=== PATIENT | male | born 1970 ===

== ENCOUNTER 2017-11-08 06:20 | Emergency (ER) | payer SELFPAY | END 2017-11-08 06:30 | disposition left against medical advice (07) | LOC: ED 06:20 | DX: Z53.21 Procedure and treatment not carried out due to patient leaving prior to being seen by health care provider (principal) ==

== ENCOUNTER 2017-11-09 15:44 | Emergency (ER) | payer SELFPAY ==
[2017-11-09 16:30] VITALS: BP 122/93
[2017-11-09 17:00] LABS: Basophils # (Auto) 0.1 K/mm3 (0.0-0.1); Basophils % (Auto) 0.6 % (0.0-1.8); Hematocrit 43.9 % (35.5-45.6); Lymphocytes # (Auto) 0.8 K/mm3 (1.2-5.4); Lymphocytes % (Auto) 6.7 % (13.4-35.0); Mean Corpuscular HGB Conc 34 % (32-34); Mean Corpuscular Hemoglobin 33 pg (28-32); Mean Corpuscular Volume 97 fl (84-94); Monocytes # (Auto) 1.1 K/mm3 (0.0-0.8); Monocytes % (Auto) 9.3 % (0.0-7.3); Platelet Count 253 K/mm3 (140-440); Red Blood Count 4.53 M/mm3 (3.65-5.03); Red Cell Distribution Width 14.4 % (13.2-15.2)
[2017-11-09 17:21] LABS: Bacteria,Urine 1+ /HPF (Negative); Bilirubin,Urine NEG (Negative); Blood,Urine LG (Negative); Color,Urine Amber (Yellow); Hyaline Casts,Urine 13 /LPF; Mucus,Urine 3+ /HPF; Sperm,Urine FEW /HPF (NP)
[2017-11-09 17:22] LABS: Amphetamine Screen,Urine PRESUMPTIVE NEGATIVE; Benzodiazepines Screen,Urine PRESUMPTIVE NEGATIVE; Cocaine Screen,Urine PRESUMPTIVE NEGATIVE; Methadone Screen,Urine PRESUMPTIVE NEGATIVE; Opiate Screen,Urine PRESUMPTIVE NEGATIVE
[2017-11-09 17:31] LABS: Calcium 10.3 mg/dL (8.4-10.2)
[2017-11-09 17:40] LABS: Cannabinoid Screen,Urine PRESUMPTIVE POSITIVE
[2017-11-09] MEDS ORDERED: K-DUR PO ONE (18:28)
--- NOTE | 2017-11-09 18:43 | Emergency Department Report ---
HPI - General Chief Complaint: Medical Clearance Time Seen by Provider: 11/09/17 18:27 - HPI HPI: This chart was originally started prior to the patient running out of an opening from the emergency department. This child will no longer be used for this patient's visit and ED course. A new chart has been started. ED Past Medical Hx - Past Medical History Previous Medical History?: Yes Hx Headaches / Migraines: Yes (unknown reason) - Surgical History Past Surgical History?: No - Social History Smoking Status: Current Every Day Smoker Substance Use Type: Marijuana ED Review of Systems ROS: Stated complaint: ams Other details as noted in HPI Comment: All other systems reviewed and negative Constitutional: denies: chills, fever Eyes: denies: eye pain, eye discharge, vision change ENT: denies: ear pain, throat pain Respiratory: denies: cough, shortness of breath, wheezing Cardiovascular: denies: chest pain, palpitations Gastrointestinal: denies: abdominal pain, nausea, diarrhea Genitourinary: denies: urgency, dysuria Musculoskeletal: joint swelling, arthralgia. denies: back pain Skin: denies: rash, lesions Neurological: denies: headache, numbness Psychiatric: visual hallucinations. denies: homicidal thoughts, suicidal thoughts Physical Exam - Physical Exam Vital Signs: Vital Signs 11/09/17 11/09/17 16:07 16:39 Temperature 97.9 F Pulse Rate 125 H Respiratory 18 18 Rate Blood Pressure 122/93 O2 Sat by Pulse 98 Oximetry Physical Exam: This chart was originally started prior to the patient running out of an opening from the emergency department. This child will no longer be used for this patient's visit and ED course. A new chart has been started. ED Course Vital Signs 11/09/17 11/09/17 16:07 16:39 Temperature 97.9 F Pulse Rate 125 H Respiratory 18 18 Rate Blood Pressure 122/93 O2 Sat by Pulse 98 Oximetry ED Medical Decision Making - Lab Data Result diagrams: 11/09/17 16:48 11/09/17 16:48 - Medical Decision Making After I did my initial assessment, the patient was waiting for assessment by the psychiatric assessment team. He was supposed to get some potassium chloride , and antibiotic for his urinary tract infection and an x-ray of his left ankle. I did not fill out a 1013 initially on the patient as he denies any suicidal or homicidal ideations and is oriented to person, place and time. However prior to the psych assessment, the patient got up and ran down the hallway and directly out of the emergency department and eloped. Critical care attestation.: If time is entered above; I have spent that time in minutes in the direct care of this critically ill patient, excluding procedure time. ED Disposition Clinical Impression: Psychosis Disposition: ELOPED Is pt being admited?: No Condition: Stable Referrals: PRIMARY CARE, [Primary Care Provider] - 3-5 Days
--- NOTE | 2017-11-10 15:51 | Consultation ---
History of Present Illness - Reason for Consult Consult date: 11/10/17 Reason for consult: Mental Health Evaluation Requesting physician: MOODY BETHEA - Chief Complaint Chief complaint: "I smoke all the time and hear voices" - History of Present Psychiatric Illness 47 y.o. AA male presenting to the ER for acute psychosis. Per the record the patient was naked when taken into custody Medications and Allergies Allergies Allergy/AdvReac Type Severity Reaction Status Date / Time No Known Allergies Allergy Unverified 11/09/17 16:32 Home Medications Medication Instructions Recorded Confirmed Last Taken Type Nitrofurantoin [place]/M-Cryst 100 mg PO BID #14 capsule 11/09/17 Unknown Rx [Macrobid CAP] Mental Status Exam - Vital signs Last Vital Signs Temp 97.9 F 11/09/17 16:07 Pulse 125 H 11/09/17 16:07 Resp 18 11/09/17 16:39 BP 122/93 11/09/17 16:07 Pulse Ox 98 11/09/17 16:07 - Exam Narrative exam: MSE: Appearance: cooperative Behavior: regular eye contact Speech: regular rate and tone Mood: "well" Affect: congruent to mood Thought Process: circumstantial Thought Content: denies SI/HI's and VH's, paranoid Motor Activity: ambulatory Cognition: A/O x 3 Insight: poor Judgment: poor Results Result Diagrams: 11/09/17 16:48 11/09/17 16:48 Abnormal lab results 11/09/17 11/09/17 11/09/17 Range/Units 16:16 16:48 16:48 WBC (4.5-11.0) K/mm3 MCV (84-94) fl MCH (28-32) pg Lymph % (Auto) (13.4-35.0) % [place] % (Auto) (0.0-7.3) % Lymph # (1.2-5.4) K/mm3 [place] # (0.0-0.8) K/mm3 Seg Neutrophils % (40.0-70.0) % Seg Neutrophils # (1.8-7.7) K/mm3 Potassium (3.6-5.0) mmol/L Chloride (98-107) mmol/L Glucose (75-100) mg/dL Calcium (8.4-10.2) mg/dL Urine WBC (Auto) 99.0 H (0.0-6.0) /HPF Salicylates < 0.3 L (2.8-20.0) mg/dL Acetaminophen < 5.0 L (10.0-30.0) ug/mL 11/09/17 11/09/17 Range/Units 16:48 16:48 WBC 12.3 H (4.5-11.0) K/mm3 MCV 97 H (84-94) fl MCH 33 H (28-32) pg Lymph % (Auto) 6.7 L (13.4-35.0) % [place] % (Auto) 9.3 H (0.0-7.3) % Lymph # 0.8 L (1.2-5.4) K/mm3 [place] # 1.1 H (0.0-0.8) K/mm3 Seg Neutrophils % 83.4 H (40.0-70.0) % Seg Neutrophils # 10.2 H (1.8-7.7) K/mm3 Potassium 3.2 L (3.6-5.0) mmol/L Chloride 95.2 L (98-107) mmol/L Glucose 109 H (75-100) mg/dL Calcium 10.3 H (8.4-10.2) mg/dL Urine WBC (Auto) (0.0-6.0) /HPF Salicylates (2.8-20.0) mg/dL Acetaminophen (10.0-30.0) ug/mL All other labs normal. Assessment and Plan Assessment and plan: Impression: Unspecified Psychosis. Cannabis Use DO. Recommendation/Plan:
== END 2017-11-09 18:35 | disposition left against medical advice (07) ==
LOC: ED 15:44
DX: F23 Brief psychotic disorder (principal); F17.200 Nicotine dependence, unspecified, uncomplicated; F12.10 Cannabis abuse, uncomplicated; G43.909 Migraine, unspecified, not intractable, without status migrainosus
CPT/HCPCS: 36415; 80048; 80307; 81001; 85025; 99284; G0480; 80320

== ENCOUNTER 2017-11-09 19:55 | Emergency (ER) | payer SELFPAY ==
--- NOTE | 2017-11-09 20:26 | Emergency Department Report ---
HPI - General Time Seen by Provider: 11/09/17 20:04 - HPI HPI: 47-year-old -[place]ong[place] male presents to the emergency department via PD after he was found naked and possibly intoxicated. The patient admits to smoking marijuana with another "younger mic" and he thinks that it may have been laced with something. He complains of hallucinations. He said that earlier he thought someone may have been coming at him with a knife. Patient is AAO 3, to person, place and time. Patient says that he may have some history of diabetes but this was not confirmed. The patient previously eloped from the emergency department prior to being made a 1013 and ran straight through the sliding doors and outside. Recently, the patient was brought back again by the [facility] Department after he was once again found naked in public. The patient has now been made a 1013. Patient's family came to the hospital and I was in to speak with his mother. She says that it is his birthday weekend and he went out and celebrate with some friends on Thursday and came back saying that he thinks that his marijuana was laced. She says that he was acting paranoid, hallucinating and at one point even asked to go to the hospital. The patient's sister drove him to the hospital where he once again got up and ran out and came back home. ED Past Medical Hx - Past Medical History Previous Medical History?: Yes Hx Headaches / Migraines: Yes (unknown reason) - Social History Smoking Status: Unknown if ever smoked - Medications Home Medications: Home Medications Medication Instructions Recorded Confirmed Last Taken Type Nitrofurantoin [place]/M-Cryst 100 mg PO BID #14 capsule 11/09/17 Unknown Rx [Macrobid CAP] ED Review of Systems ROS: Stated complaint: MH EVALUATION Other details as noted in HPI Comment: All other systems reviewed and negative Constitutional: denies: chills, fever Eyes: denies: eye pain, eye discharge, vision change ENT: denies: ear pain, throat pain Respiratory: denies: cough, shortness of breath, wheezing Cardiovascular: denies: chest pain, palpitations Gastrointestinal: denies: abdominal pain, nausea, diarrhea Genitourinary: denies: urgency, dysuria Musculoskeletal: denies: back pain, myalgia Skin: denies: rash, change in color Neurological: denies: headache, numbness Psychiatric: visual hallucinations, other (paranoia). denies: suicidal thoughts Physical Exam - Physical Exam Physical Exam: GENERAL: The patient is well-developed well-nourished. HENT: Normocephalic. Atraumatic. Patient has moist mucous membranes. EYES: Extraocular motions are intact. NECK: Supple. Trachea is midline. CHEST/LUNGS: Clear to auscultation. There is no respiratory distress noted. HEART/CARDIOVASCULAR: Regular. There is no tachycardia. There is no murmur. ABDOMEN: Abdomen is soft, nontender. Patient has normal bowel sounds. There is no abdominal distention. SKIN: Skin is warm and dry. NEURO: The patient is awake, alert, and oriented. The patient is cooperative. The patient has no focal neurologic deficits. The patient has normal speech. MUSCULOSKELETAL: There is no tenderness or deformity. There is no limitation range of motion. There is no evidence of acute injury. PSYCH: The patient appears disorganized. He has some rambling speech but sometimes can be redirected. ED Medical Decision Making - Medical Decision Making The patient was brought in earlier by the police after he was found naked and seemed either intoxicated or having some type of psychosis. As previously mentioned, the patient took off running from the emergency department and eloped. However he was once again found naked wandering the streets and was brought in by the police department yet again. Originally the concern was that the patient may have smoked marijuana was laced with something or some other type of drug. The urine drug screen is positive only for marijuana. However there are other drugs and/or pharmaceuticals that are manufactured and we are unable to test or check for them. That being said, this may not be a drug intoxication or reaction and may just be psychosis. One point this evening, the patient attempted to harm himself using the sheets that were in the room. For his own safety, the patient had the sheets removed from the room. The patient was stating that he had nothing to live for. However mom had previously said that prior to this weekend he was acting normal , able to hold down a job. Patient's labs show a urinary tract infection. He has been started on Macrobid. He has some mild hypokalemia for which she was given some potassium chloride. The patient was given a dose of Geodon to help with the active psychosis. He has been made a 1013 secondary to the psychosis which includes some delusions and paranoia. His vital signs and stable throughout his ED course. He is medically cleared for psychiatric placement. - Differential Diagnosis drug intoxication/reaction, psychosis, schizophrenia Critical Care Time: No Critical care attestation.: If time is entered above; I have spent that time in minutes in the direct care of this critically ill patient, excluding procedure time. ED Disposition Clinical Impression: Psychosis Qualifiers: Psychosis type: unspecified psychosis type Qualified Code(s): F29 - Unspecified psychosis not due to a substance or known physiological condition UTI (urinary tract infection) Qualifiers: Urinary tract infection type: acute cystitis Hematuria presence: without hematuria Qualified Code(s): N30.00 - Acute cystitis without hematuria Disposition: DC/TX-65 PSY HOSP/PSY UNIT Is pt being admited?: No Condition: Stable Instructions: Urinary Tract Infection in Men (ED) Additional Instructions: I am giving him a referral for a local urologist, Dr. Hamilton, to follow up with after you were done with either your emergency or psychiatric visit. Prescriptions: Nitrofurantoin [place]/M-Cryst [Macrobid CAP] 100 mg PO BID #14 capsule Referrals: PRIMARY MD TOM [Primary Care Provider] - 3-5 Days ASHLEE HAMILTON MD [Staff Physician] - 3-5 Days Time of Disposition: 23:56
[2017-11-09] MEDS ORDERED: GEODON IM ONE (21:50)
[2017-11-09] MEDS ORDERED: K-DUR PO ONE (22:35)
[2017-11-09] MEDS ORDERED: WATER FOR INJ (PF) ONE (23:21)
[2017-11-09] MEDS: MACROBID PO SCH (23:27)
[2017-11-10] MEDS: MACROBID PO SCH ×2 (10:00→22:25)
[2017-11-10] MEDS ORDERED: LEVAQUIN PO ONE (12:35)
--- NOTE | 2017-11-10 15:58 | Consultation ---
History of Present Illness - Reason for Consult Consult date: 11/10/17 Reason for consult: Mental Health Evaluation Requesting physician: MOODY BETHEA - Chief Complaint Chief complaint: "I smoke everyday" - History of Present Psychiatric Illness 47-year-old -[place] male presents to the emergency department via PD after he was found naked and possibly intoxicated. Today the patient is cooperative, but anxious during the assessment. He stated that he smoke marijuana everyday. He could not elaborate about what happened yesterday when asked. He did state that he was naked when brought to the ER. He was looking around and pausing when asked questions, possibly responding to some type of stimuli. He stated that he felt like something isn't right with him. He denies a mental hx dx. He denies SI/HI's and AVH's. He denies erratic sleep and a poor appetite. He denies alcohol consumption (etoh). Medications and Allergies Allergies Allergy/AdvReac Type Severity Reaction Status Date / Time No Known Allergies Allergy Unverified 11/09/17 16:32 Home Medications Medication Instructions Recorded Confirmed Last Taken Type Nitrofurantoin [place]/M-Cryst 100 mg PO BID #14 capsule 11/09/17 Unknown Rx [Macrobid CAP] Active Meds: Active Medications Nitrofurantoin Macrocrystals (Macrobid) 100 mg PO BID JAYDON Last Admin: 11/09/17 23:27 Dose: 100 mg Mental Status Exam - Vital signs Last Vital Signs Temp 99.0 F 11/10/17 03:00 Pulse 110 H 11/10/17 03:00 Resp 20 11/10/17 03:00 BP 126/78 11/10/17 03:00 Pulse Ox 98 11/10/17 03:00 - Exam Narrative exam: MSE: Appearance: cooperative Behavior: regular eye contact Speech: regular rate and tone Mood: anxious Affect: congruent to mood Thought Process: tangential Thought Content: denies SI/HI's and AVH's, paranoid Motor Activity: ambulatory Cognition: A/O x 3 Insight: variable Judgment: variable Results All other labs normal. Assessment and Plan Assessment and plan: Impression: Unspecified Psychosis. R/O Unspecified Anxiety DO. Cannabis Use DO. Today the patient is cooperative, but anxious during the assessment. DDx: Substance Induced Psychosis Recommendation/Plan: Reevaluate the 1013 in 24 hours to determine proper dispo. Start Vistaril 25 mg PO BID for anxiety.
[2017-11-10] MEDS: VISTARIL PO SCH (22:25)
[2017-11-11] MEDS: MACROBID PO SCH ×2 (10:00→21:29)
[2017-11-11] MEDS: VISTARIL PO SCH ×2 (10:00→21:29)
--- NOTE | 2017-11-11 13:15 | Progress Note ---
Subjective - Reason for Consult Consult date: 11/11/17 Reason for consult: Psychiatric Follow-up Evaluation - Chief Complaint Chief complaint: "I feel okay" Patient is a 47-year-old -Vietnamese male that presents to the emergency department via PD after he was found naked and possibly intoxicated. Today the patient is cooperative, but anxious during the assessment. He stated that he smoke marijuana everyday. Patient presents somewhat guarded and evasive throughout the assessment. Unable to answer questions appropriately. He states, " I'm here because I was on some shit. I needed some sleep." He reports decrease sleep and appetite. He endorses paranoid delusions and auditory hallucinations telling him to leave. He denies SI/HI's. Mental Status Exam - Vital signs Last Vital Signs Temp 98.9 F 11/11/17 10:00 Pulse 115 H 11/11/17 10:00 Resp 16 11/11/17 10:00 BP 130/105 11/11/17 10:00 Pulse Ox 99 11/11/17 10:00 - Exam Narrative exam: Mental Status Exam General Appearance: Casually Dressed-hospital gown Eye Contact: Intermittent Orientation: Alert and oriented x 3 ( person, place, and time) Attitude/Behavior: Cooperative, evasive/guarded Sensorium: Distracted, confused (?) Psychomotor & Musculoskeletal Activity: Laying in bed Mood: " Okay." Affect: Constricted Speech/Language: normal rate and tone Thought Processes: Circumstantial, tangential Thought Content:Impoverished, paranoid- believes everybody is out to harm him Perception:+ AH's "telling me to leave" Concentration/Attention: Impaired Suicidal Ideations/Plan: Patient denies Homicidal Ideations/Plan: Patient denies Judgment: Variable Insight: Variable Assessment and Plan Impression: Unspecified Psychosis. R/O Unspecified Anxiety DO. Cannabis Use DO. Today the patient is cooperative, but anxious during the assessment. He endorses AH's and paranoid delusions. He denies SI/HI's. DDx: Substance Induced Psychosis Recommendation/Plan: 1. Continue 1013 with placement to inpatient psychiatric services. 2. Continue Vistaril 25 mg PO BID for anxiety. 3. Start Zyprexa 5mg po QHS mood/psychosis. Discussed metabolic side effects. 4. Will continue to monitor psychosis, mood, sleep, appetite, compliance, and side effects.
[2017-11-11] MEDS ORDERED: LEVAQUIN PO ONE (13:55)
[2017-11-11] MEDS ORDERED: LEVAQUIN ONE (16:14)
--- NOTE | 2017-11-12 07:34 | Progress Note ---
Subjective - Reason for Consult Consult date: 11/12/17 Reason for consult: Psychiatry Follow-up - Chief Complaint Chief complaint: "Hello there" Patient is a 47-year-old -Aust[place] male that presents to the emergency department via PD after he was found naked and possibly intoxicated. Today the patient is cooperative, but disorganized during the assessment. He had to be redirected several times to keep him on topic. He paused prior to answering questions, possibly responding to some type of stimuli. He denies SI/HI's and VH 's. He stated that the voices hes's experiencing are "bad." No indications of side effects of his medications. . Mental Status Exam - Vital signs Last Vital Signs Temp 97.7 F 11/11/17 19:45 Pulse 98 H 11/11/17 19:45 Resp 18 11/11/17 19:45 BP 114/72 11/11/17 19:45 Pulse Ox 98 11/11/17 19:45 - Exam Narrative exam: MSE: Appearance: cooperative Behavior: regular eye contact Speech: regular rate and tone Mood: "okay" Affect: congruent to mood Thought Process: thought blocking, disorganized Thought Content: denies SI/HI's and VH's, paranoid Motor Activity: ambulatory Cognition: A/O x 3 Insight: poor Judgment: variable Assessment and Plan Impression: Unspecified Psychosis. R/O Unspecified Anxiety DO. Cannabis Use DO. Today the patient is cooperative, but disorganized during the assessment. The patient is experiencing perceptual disturbances. DDx: Substance Induced Psychosis Recommendation/Plan: Continue 1013 with placement to inpatient psy services. Continue Vistaril 25 mg PO BID for anxiety and starty Zyprexa 2.5 mg PO HS for psychosis. Discussed possible metabolic side effects of Zyprexa with the patient.
[2017-11-12] MEDS: MACROBID PO SCH ×2 (10:10→22:49)
[2017-11-12] MEDS: VISTARIL PO SCH ×2 (10:10→22:49)
[2017-11-13 04:24] LABS: Bacteria,Urine 1+ /HPF (Negative); Bilirubin,Urine NEG (Negative); Blood,Urine LG (Negative); Mucus,Urine 3+ /HPF
[2017-11-13 04:26] LABS: Color,Urine Yellow (Yellow)
[2017-11-13] MEDS: MACROBID PO SCH ×2 (09:49→23:00)
[2017-11-13] MEDS: VISTARIL PO SCH ×2 (09:50→23:00)
--- NOTE | 2017-11-13 14:15 | Progress Note ---
Subjective - Reason for Consult Consult date: 11/13/17 Reason for consult: Psychiatry Follow-up - Chief Complaint Chief complaint: "The voices" Patient is a 47-year-old -[place]yp[place] male that presents to the emergency department via PD after he was found naked and possibly intoxicated. Today the patient is cooperative, but disorganized during the assessment. He stated that he is receiving some type of "something" from the TV. He denies that the TV is speaking to him. He stated that something is going and he can't put his "finger on it." He denies SI/HI and VH's. He denies any side effects of his medications. Mental Status Exam - Vital signs Last Vital Signs Temp 99.6 F 11/13/17 09:21 Pulse 70 11/13/17 09:21 Resp 16 11/13/17 10:05 BP 140/97 11/13/17 09:21 Pulse Ox 98 11/13/17 09:21 - Exam Narrative exam: MSE: Appearance: cooperative Behavior: regular eye contact Speech: regular rate and tone Mood: "okay" Affect: congruent to mood Thought Process: disorganized Thought Content: denies SI/HI's and VH's, paranoid, delusional Motor Activity: ambulatory Cognition: A/O x 3 Insight: poor Judgment: poor Assessment and Plan Impression: Unspecified Psychosis. R/O Unspecified Anxiety DO. Cannabis Use DO. Today the patient is cooperative, but disorganized during the assessment. DDx: Substance Induced Psychosis Recommendation/Plan: Continue 1013 with placement to inpatient psy services. Continue Vistaril 25 mg PO BID for anxiety and continue Zyprexa 2.5 mg PO HS for psychosis. Discussed possible metabolic side effects of Zyprexa with the patient.
[2017-11-14] MEDS: VISTARIL PO SCH ×2 (09:50→22:19)
[2017-11-14] MEDS: MACROBID PO SCH ×2 (09:50→22:19)
--- NOTE | 2017-11-14 16:51 | Progress Note ---
Subjective - Reason for Consult Consult date: 11/14/17 Reason for consult: Psychiatric Follow-up Evaluation - Chief Complaint Chief complaint: "I apologize" Patient is a 47-year-old -Banglades[place] male that presents to the emergency department via PD after he was found naked and possibly intoxicated. Today the patient attempts to cooperate but cannot due to thought blocking and pressured speech. Patient thoughts are disorganized. Per RN, although patient is redirectable he appears to be decompensating ( increasing paranoia). He attempted to barricade himself in the room. Also, patient refused AM medications. Patient can be seen sitting on the edge of the bed looking confused and lost. No SI/HI's gestures noted/reported. Patient has been noncompliant with medication. Mental Status Exam - Vital signs Last Vital Signs Temp 98.7 F 11/14/17 10:00 Pulse 95 H 11/14/17 10:00 Resp 18 11/14/17 10:00 BP 154/80 11/14/17 10:00 Pulse Ox 96 11/14/17 10:00 - Exam Narrative exam: Mental Status Exam General Appearance: Casually Dressed-hospital gown Eye Contact: Poor Orientation: Alert and oriented x 1 ( person) Attitude/Behavior: Cooperative, evasive/guarded Sensorium: Distracted, confused (?) Psychomotor & Musculoskeletal Activity: Sitting on the edge of the bed Mood: " Okay." Affect: Constricted Speech/Language: Pressured, delayed Thought Processes: Blocking Thought Content:Impoverished, paranoid- attempted to barricade himself in the room Perception: Appears internally preoccupied Concentration/Attention: Impaired Suicidal Ideations/Plan: Nods no. Homicidal Ideations/Plan: Nod no. Judgment: Poor Insight: Poor Assessment and Plan Impression: Unspecified Psychosis. R/O Unspecified Anxiety DO. Cannabis Use DO. Today the patient attempts to cooperate during the assessment. However, patient is unable to due to thought blocking and being disorganized. Patient presents paranoid and internally preoccupied. Patient has been noncompliant with medication. DDx: Substance Induced Psychosis Recommendation/Plan: 1. Continue 1013 with placement to inpatient psychiatric services. 2. Continue Vistaril 25 mg PO BID for anxiety. 3. Increase Zyprexa 5 mg PO HS for psychosis. Discussed possible metabolic side effects of Zyprexa with the patient. 4. Will continue to monitor psychosis, mood, sleep, appetite, compliance, and side effects.
[2017-11-15] MEDS ORDERED: ATIVAN IM ONE (08:13)
[2017-11-15] MEDS ORDERED: GEODON IM ONE (09:39)
[2017-11-15] MEDS: VISTARIL PO SCH ×2 (09:58→22:18)
[2017-11-15] MEDS: MACROBID PO SCH ×2 (09:58→22:18)
--- NOTE | 2017-11-15 23:55 | Progress Note ---
Subjective - Reason for Consult Consult date: 11/15/17 Reason for consult: Psychiatric Follow-up Evaluation - Chief Complaint Chief complaint: "I apologize" Patient is a 47-year-old -[place] male that presents to the emergency department via PD after he was found naked and possibly intoxicated. Today the patient attempts to cooperate but cannot due to thought blocking and pressured speech. Patient thoughts are disorganized. Per RN, although patient is redirectable he appears to be decompensating ( increasing paranoia). He attempted to barricade himself in the room. Also, patient refused AM medications. Patient can be seen sitting on the edge of the bed looking confused and lost. No SI/HI's gestures noted/reported. Patient has been noncompliant with medication. Mental Status Exam - Vital signs Last Vital Signs Temp 97.3 F L 11/15/17 10:00 Pulse 128 H 11/15/17 10:00 Resp 18 11/15/17 10:00 BP 106/86 11/15/17 10:00 Pulse Ox 99 11/15/17 10:00
[2017-11-16] MEDS: ATIVAN IM SCH ×3 (09:01→21:21)
[2017-11-16 09:25] LABS: BUN/Creatinine Ratio 24; Blood Urea Nitrogen 24 mg/dL (9-20); Calcium 9.8 mg/dL (8.4-10.2); Hemolysis Index 10
[2017-11-16] MEDS: MACROBID PO SCH ×2 (09:55→21:33)
--- NOTE | 2017-11-16 10:31 | Progress Note ---
Subjective - Reason for Consult Consult date: 11/16/17 Reason for consult: Psychiatry Follow-up - Chief Complaint Chief complaint: "The patient is nonverbal" Patient is a 47-year-old -[place] male that presents to the emergency department via PD after he was found naked and possibly intoxicated. Today the patient is nonverbal with psychomotor retardation during the assessment. He would not close his mouth when asked. Also, the patient had a blank stare. He tried to follow some commands when asked. He nodded his head "yes" to being fearful. No gestures of SI/HI's. Mental Status Exam - Vital signs Last Vital Signs Temp 98.0 F 11/16/17 09:36 Pulse 97 H 11/16/17 09:36 Resp 20 11/16/17 09:36 BP 153/110 11/16/17 09:36 Pulse Ox 100 11/16/17 09:36 - Exam Narrative exam: Could not complete the MSE because of the patient's condition. Assessment and Plan Impression: Unspecified Psychosis. R/O Unspecified Anxiety DO. Cannabis Use DO. R/O Catatonia. Today the patient is nonverbal during the assessment. CK 4350. DDx: Substance Induced Psychosis Recommendation/Plan: Continue 1013 with placement to inpatient psy services once medically clear. Start Ativan 1 mg TID IM for catatona. D/C'd Zyprexa, the patient's CK is 4350. Recommend DVT/GI prophylaxis. Monitor the patient's oral intake. Informed the patient's nurse to address elevated CK with the ER MD.
[2017-11-16] MEDS: VISTARIL PO SCH (11:53)
[2017-11-16] MEDS ORDERED: NACL 0.9% 1000 ML 1,000 ML IV ONE (12:22)
[2017-11-17] MEDS: ATIVAN IM SCH (08:52)
[2017-11-17] MEDS: MACROBID PO SCH ×2 (10:25→22:45)
--- NOTE | 2017-11-17 11:44 | Emergency Department Report ---
Blank Doc - Documentation Documentation: There was concern regarding the patient's elevated CK level. I taken a look at the patient's labs and there is no signs of any renal insufficiency. His CK level is trending down and has dropped to 2900 from 4500 without any IV fluid resuscitation. There does not appear to be any signs of rhabdomyolysis. Patient's vital signs have been stable throughout his ED course including being afebrile. Patient appears medically cleared for psychiatric placement.
--- NOTE | 2017-11-17 13:21 | Progress Note ---
Subjective - Reason for Consult Consult date: 11/17/17 Reason for consult: Psychiatry Follow-up - Chief Complaint Chief complaint: "I was running in the fowler" Patient is a 47-year-old -[place] male that presents to the emergency department via PD after he was found naked and possibly intoxicated. Today the patient is calm, but disorganized during the assessment. He was rambling about running in the wood last night. Also, the patient was sitting on the floor covering himself with a mattress. No gestures of Si/HI's. Mental Status Exam - Vital signs Last Vital Signs Temp 98.5 F 11/17/17 10:00 Pulse 92 H 11/17/17 10:00 Resp 20 11/17/17 10:00 BP 119/82 11/17/17 10:00 Pulse Ox 100 11/17/17 10:00 - Exam Narrative exam: MSE: Appearance: calm, cooperative Behavior: regular eye contact Speech: regular rate and tone Mood: "okay" Affect: congruent to mood Thought Process: disorganized Thought Content: denies SI/HI's and VH's, paranoid, delusional Motor Activity: ambulatory Cognition: A/O x 3 Insight: poor Judgment: poor Assessment and Plan Impression: Unspecified Psychosis. R/O Unspecified Anxiety DO. Cannabis Use DO. Today the patient is calm, but disorganized during the assessment. Catatonia like symptoms has resolved. DDx: Substance Induced Psychosis Recommendation/Plan: Continue 1013 with placement to inpatient psy services. Restart Vistaril 25 mg PO BID for anxiety and Zyprexa 5 mg PO HS for psychosis. Discussed possible metabolic side effects of Zyprexa with the patient.
[2017-11-17] MEDS: VISTARIL PO SCH ×2 (14:55→22:46)
[2017-11-17] MEDS ORDERED: LEVAQUIN PO ONE (17:56)
[2017-11-17 20:33] VITALS: BP 134/85
[2017-11-17] MEDS ORDERED: ATIVAN IM ONE (20:43)
[2017-11-18 00:03] LABS: Bilirubin,Urine NEG (Negative); Blood,Urine MOD (Negative); Color,Urine Amber (Yellow); Mucus,Urine FEW /HPF
--- NOTE | 2017-11-18 01:58 | Cat Scan Report ---
FINAL REPORT EXAM: CT HEAD/BRAIN WO CON HISTORY: ams COMPARISON: None available. TECHNIQUE: Axial images obtained skull base through vertex. FINDINGS: No acute intracranial hemorrhage, midline shift or pathologic extra axial fluid collection. Ventricles and cisterns are normal in size and configuration for the patient's age. Patten-white differentiation preserved. Calvarium grossly intact. Visualized para-nasal sinuses and mastoid air cells are clear. IMPRESSION: No grossly acute intracranial abnormality.
[2017-11-18] MEDS ORDERED: NACL 0.9% 1000 ML 1,000 ML IV ONE (02:59)
[2017-11-18] MEDS: VISTARIL PO SCH (09:44)
[2017-11-18] MEDS: MACROBID PO SCH (09:44)
== END 2017-11-18 11:57 ==
LOC: ED 19:55 → EEVIPCON 19:55 → ED 11-18 11:57
DX: F29 Unspecified psychosis not due to a substance or known physiological condition (principal); N30.00 Acute cystitis without hematuria; G43.909 Migraine, unspecified, not intractable, without status migrainosus
CPT/HCPCS: 36415; 70450; 80048; 81001; 82550; 84132; 84443; 93005; 93010; 96372; 99285; G0480; J2060; J3486; J7030; 80320; Q0177